=== PATIENT | male | born 1950 | race Caucasian/White ===

== ENCOUNTER → 2020-05-31 | Outpatient (CLI) | payer MEDICARE ==
[~2020-05-31] MED LIST: EZET10TA70 PO; FINA5TAB4 PO; ROSU20TA2 PO; TAMS-11 PO
== END | disposition home or self-care (01) ==
LOC: STAR 12:28
PROVIDERS: ATTEND Urology
DX: Z01.818 Encounter for other preprocedural examination (principal); N40.1 Benign prostatic hyperplasia with lower urinary tract symptoms; I45.2 Bifascicular block; Z20.822 Contact with and (suspected) exposure to COVID-19
CPT/HCPCS: 93005; U0003

== ENCOUNTER 2020-06-06 05:43 | Day surgery (SDC) | payer MEDICARE ==
[2020-05-31 13:02] VITALS: BP 118/78
[~2020-06-06] VITALS: Ht 175.3 cm; Wt 76.0 kg
[2020-06-06] MEDS ORDERED: OPIUM/BELLADONNA SUPP.RECT 16.2-60 MG ONE (06:58)
[2020-06-06] MEDS ORDERED: LACTATED RINGERS 1,000 ML IV SCH (07:00)
[2020-06-06] MEDS ORDERED: CHLORHEXIDINE 15 ML UDC PO ONE (07:00)
[2020-06-06] MEDS ORDERED: MIDAZOLAM 1 MG/ML, 2ML ONE (07:18)
[2020-06-06] MEDS ORDERED: FENTANYL PF 250 MCG/5ML ONE (07:18)
[2020-06-06] MEDS ORDERED: PROPOFOL 50 ML ONE (07:18)
[2020-06-06] MEDS ORDERED: NEOMY/POLYMYXIN B GU IRR. 1 ML ONE (07:37)
[2020-06-06] MEDS ORDERED: ONDANSETRON 2MG/ML, 2ML ONE (07:47)
[2020-06-06] MEDS ORDERED: DEXAMETHASONE 4 MG/ML, 1ML ONE (07:47)
[2020-06-06] MEDS ORDERED: ROCURONIUM 10MG/ML,5ML ONE (07:47)
[2020-06-06] MEDS ORDERED: SUCCINYLCHOLINE 20 MG/ML, 10ML ONE (07:47)
[2020-06-06] MEDS ORDERED: CEFAZOLIN 1,000 MG ONE ×2 (07:47)
[2020-06-06] MEDS ORDERED: PROPOFOL 10 MG/ML, 20ML ONE (07:47)
[2020-06-06] MEDS ORDERED: MEPERIDINE/PF 25MG/0.5ML IVPush PRN (08:30)
[2020-06-06] MEDS ORDERED: LABETALOL 5MG/ML, 20ML IV PRN (08:30)
[2020-06-06] MEDS ORDERED: ACETAMINOPHEN 325 MG TABLET PO PRN (08:30)
[2020-06-06] MEDS ORDERED: DIAZEPAM 5 MG/ML, 2ML IVPush PRN (08:30)
[2020-06-06] MEDS ORDERED: morphine SULFATE 10 MG/ML, 1ML IVPush PRN (08:30)
[2020-06-06] MEDS ORDERED: PROMETHAZINE 25 MG/ML, 1ML IVPush PRN (08:30)
[2020-06-06] MEDS ORDERED: FENTANYL PF 100 MCG/2ML IV PRN (08:30)
[2020-06-06] MEDS ORDERED: EPHEDRINE 50 MG/ML, 1ML IM PRN (08:30)
[2020-06-06] MEDS ORDERED: DIPHENHYDRAMINE 50 MG/ML, 1ML IVPush PRN (08:30)
[2020-06-06] MEDS ORDERED: EPHEDRINE 50 MG/ML, 1ML IVPush PRN (08:30)
[2020-06-06] MEDS ORDERED: OXYcodone 5 MG/5 ML ORAL.SOL UDC PO PRN (08:30)
[2020-06-06] MEDS ORDERED: ONDANSETRON 2MG/ML, 2ML IVPush PRN (08:30)
[2020-06-06] MEDS ORDERED: FUROSEMIDE 20 MG/2 ML ONE (08:57)
[2020-06-06] MEDS ORDERED: FENTANYL PF 100 MCG/2ML ONE (09:55)
== END 2020-06-06 12:00 | disposition home or self-care (01) ==
LOC: OUT 05:43
PROVIDERS: ATTEND Urology
DX: N40.1 Benign prostatic hyperplasia with lower urinary tract symptoms (principal); R33.8 Other retention of urine; C67.9 Malignant neoplasm of bladder, unspecified; Z72.89 Other problems related to lifestyle; Z87.891 Personal history of nicotine dependence; Z79.899 Other long term (current) drug therapy; Z98.890 Other specified postprocedural states
CPT/HCPCS: 52648; J0330; J0690; J1100; J1940; J2250; J2405; J2704; J3010; J7120